=== PATIENT | male | born 1975 | race Caucasian/White ===

== ENCOUNTER 2020-06-28 05:01 | Inpatient (IN) | payer MEDICAID ==
[~2020-06-28] VITALS: Ht 182.9 cm; Wt 73.0 kg
[2020-06-28] MEDS ORDERED: Insulin Reg/NS 100units/100mL 100 ML IV PRN (05:18)
--- NOTE | 2020-06-28 05:30 | NUR ---
INSULIN GTT RESTARTED @ 5U/HR PER MD VERBAL ORDER
[2020-06-28 05:31] LABS: ABG BASE EXCESS -3.6 mmol/L (-2.0-2.0); ABG HCO3 20.3 mmol/L (22.0-26.0); ABG OXYGEN SATURATION 97.1 % (94-97); ABG PCO2 (T) 32.4 mmHg (35.0-48.0); ABG PO2 (T) 96.7 mmHg (75.0-100.0); ALLEN'S TEST POSITIVE; FCOHb 0.7 % (0.0-3.9); FO2Hb 96.4 % (94-97); PATIENT TEMPERATURE 36.8; TOTAL HEMOGLOBIN 11.5 G/dl (14.0-18.0)
[2020-06-28] MEDS ORDERED: potassium CL 20mEq in D5-1/2NS 1,000 ML IV PRN ×2 (05:37→07:07)
[2020-06-28 05:44] LABS: BASOPHILS # (AUTO) 0.1 X10'3 (0-0.2); BASOPHILS % (AUTO) 1.1 % (0-1); EOSINOPHILS % (AUTO) 0.4 % (0-6); HEMATOCRIT 37.5 % (42.0-52.0); HEMOGLOBIN 12.6 g/dl (14.0-17.9); LYMPHOCYTES # (AUTO) 1.6 X10'3 (1.1-4.8); LYMPHOCYTES % (AUTO) 14.2 % (21-51); MEAN CORPUSCULAR HEMOGLOBIN 28.6 PG (27.0-31.0); MEAN CORPUSCULAR HGB CONC 33.5 g/dL (33.0-36.5); MEAN CORPUSCULAR VOLUME 85.4 FL (78-98); MEAN PLATELET VOLUME 7.5 FL (7.4-10.4); MONOCYTES # (AUTO) 0.5 X10'3 (0-0.9); MONOCYTES % (AUTO) 4.9 % (2-12); NEUTROPHILS # (AUTO) 8.8 X10'3 (1.8-7.7); NEUTROPHILS % (AUTO) 79.4 % (42-75); PLATELET COUNT 468 X10'3 (140-440); RED CELL DISTRIBUTION WIDTH 16.2 % (11.5-14.5); WHITE BLOOD COUNT 11.1 X10'3 (4.5-11.0)
[2020-06-28] MEDS ORDERED: INSU100I48 (05:49)
[2020-06-28] MEDS ORDERED: LANTUS SQ (05:49)
[2020-06-28 05:59] LABS: ALANINE AMINOTRANSFERASE 29 U/L (12-78); ALBUMIN 4.4 G/DL (3.4-5.0); ALBUMIN/GLOBULIN RATIO 1.2 (1.1-1.5); ALKALINE PHOSPHATASE 96 IU/L (46-116); ANION GAP 14 (8-16); ASPARTATE AMINO TRANSFERASE 11 U/L (10-37); BILIRUBIN,TOTAL 0.6 MG/DL (0.1-1.0); BLOOD UREA NITROGEN 29 MG/DL (7-18); CALCIUM 9.4 MG/DL (8.5-10.1); CHLORIDE 99 MMOL/L (99-107); CREATININE 1.53 MG/DL (0.60-1.10); GLUCOSE 166 MG/DL (70-104); MAGNESIUM 1.9 MG/DL (1.5-2.4); PHOSPHORUS 2.6 MG/DL (2.3-4.5); POTASSIUM 3.7 MMOL/L (3.5-5.1); SODIUM 135 MMOL/L (135-145); TOTAL CARBON DIOXIDE 22.4 MMOL/L (24-32); TOTAL PROTEIN 8.2 G/DL (6.4-8.2); eGFR 50 ML/MIN
--- NOTE | 2020-06-28 07:06 | NUR ---
Pt glucose 87. Insulin gtt and fluids stopped per instruction of Dr. Sauceda. Pt given carton of milk and 2 servings of yogurt which pt is currently eating and drinking.
[2020-06-28] MEDS ORDERED: Insulin Reg/NS 100units/100mL 100 ML IV SCH (07:07)
[2020-06-28] MEDS ORDERED: mag hydrox/Alum hydrox/simeth 30ml oral suspension PO PRN (07:10)
[2020-06-28] MEDS ORDERED: sodium phosphate inj. 15 MMOL in dextrose 5%-water 250 ML IV PRN (07:10)
[2020-06-28] MEDS ORDERED: Neutra Phos packet PO PRN (07:10)
[2020-06-28] MEDS ORDERED: magnesium hydroxide 30ml (MOM) UD suspension PO PRN (07:10)
[2020-06-28] MEDS ORDERED: sodium phosphate inj. 30 MMOL in dextrose 5%-water 250 ML IV PRN (07:10)
[2020-06-28] MEDS ORDERED: potassium Cl 20 mEq SR tablet PO PRN (07:10)
[2020-06-28] MEDS ORDERED: ondansetron/PF 4mg/2ml inj IV PRN (07:10)
[2020-06-28] MEDS ORDERED: potassium CL 10mEq/100ml bag 100 ML IV PRN ×2 (07:10)
[2020-06-28] MEDS ORDERED: acetaminophen 325mg tablet PO PRN (07:10)
[2020-06-28] MEDS: K and/or MAG REPLACEMENT MC SCH ×2 (08:00→20:00)
--- NOTE | 2020-06-28 08:17 | NUR ---
CALLED DR RAI AND UPDATED MD ON PT GLUCOSE OF 190 AND ORAL INTAKE PT INGESTED. RECEIVED VO TO GIVE 12 UNITS LANTUS SUBCUT X1 NOW AND COVER CARB INTAKE WITH HYPERGLYCEMIA PROTOCOL LEVEL 2.
[2020-06-28] MEDS ORDERED: insulin glargine (Lantus) pen - multi-dose SQ ONE (08:20)
[2020-06-28] MEDS ORDERED: dextrose ORAL solution 15 GM/59 ML bottle PO PRN ×2 (08:35)
[2020-06-28] MEDS ORDERED: dextrose 50%-water 50ml dispensing syringe IV PRN ×2 (08:35)
[2020-06-28] MEDS ORDERED: glucagon, human recombinant 1mg kit SUBCUT PRN (08:35)
[2020-06-28] MEDS: normal saline 1000ml 1,000 ML IV SCH ×3 (08:59→12:14)
[2020-06-28] MEDS: vancomycin/NS 1 GM ADD-VANTAGE 250 ML IV SCH ×2 (08:59→20:01)
[2020-06-28] MEDS: heparin, porcine 5000 units/ml vial SQ SCH ×2 (09:00→19:50)
[2020-06-28] MEDS: insulin Lispro (HumaLOG) vial - multi-dose SQ SCH ×3 (09:17→19:58)
--- NOTE | 2020-06-28 09:39 | NUR ---
Patient in room ED 3. I have received report from Mabel RN and had the opportunity to ask questions. Awaiting pt arrival to PCU
[2020-06-28 10:50] VITALS: BP 161/98
[2020-06-28 11:00] VITALS: BP 151/110
--- NOTE | 2020-06-28 11:01 | NUR ---
Sent a page to Dr Shekhar sommer PAGER ID: [phone] MESSAGE: Meagan BECKFORD [phone], do you want this patient to be on IV fluids? thanks!
--- NOTE | 2020-06-28 12:20 | NUR ---
Attempted to call patients mom, Sadia, at [phone] to give her an update, this is the wrong number, will continue to monitor the patient closely.
[2020-06-28] MEDS ORDERED: hydrALAZINE 20mg/ml inj. IV PRN (13:30)
[2020-06-28] MEDS ORDERED: lisinopril 10 MG tablet PO ONE (13:35)
--- NOTE | 2020-06-28 14:06 | NUR ---
Sent a page to Dr Shekhar sommer PAGER ID: [phone] MESSAGE: Meagan BECKFORD [phone], patient c/o pain in had, can i have an order for PRN pain medication please, thank you
[2020-06-28] MEDS: HYDROcodone/acetaminophen 5mg/325mg tablet PO PRN ×2 (14:19→19:49)
[2020-06-28 14:38] LABS: ALBUMIN 3.3 G/DL (3.4-5.0); ANION GAP 8 (8-16); BLOOD UREA NITROGEN 26 MG/DL (7-18); BUN/CREATININE RATIO 21.1 (5.4-32.0); CALCIUM 8.5 MG/DL (8.5-10.1); CHLORIDE 99 MMOL/L (99-107); CREATININE 1.23 MG/DL (0.60-1.10); GLUCOSE 203 MG/DL (70-104); PHOSPHORUS 2.1 MG/DL (2.3-4.5); POTASSIUM 3.4 MMOL/L (3.5-5.1); SODIUM 133 MMOL/L (135-145); TOTAL CARBON DIOXIDE 26.5 MMOL/L (24-32); eGFR 64 ML/MIN
[2020-06-28 15:00] VITALS: BP 159/94
[2020-06-28] MEDS: potassium Cl 20 mEq SR tablet PO PRN ×2 (15:27→23:29)
[2020-06-28 18:00] VITALS: BP 131/70
--- NOTE | 2020-06-28 18:28 | NUR ---
Problems reprioritized. Patient report given, questions answered & plan of care reviewed with Doroteo BECKFORD.
--- NOTE | 2020-06-28 18:43 | NUR ---
Patient in room PCU 3010. I have received report from SHAKEEL Rhodes and had the opportunity to ask questions and assume patient care.
[2020-06-28] MEDS: lactobacillus rhamnosus 10,000 MMU CELLS/CAPSULE PO SCH (19:49)
[2020-06-28 22:00] VITALS: BP 135/80
[2020-06-29] MEDS: HYDROcodone/acetaminophen 5mg/325mg tablet PO PRN (01:33)
[2020-06-29] MEDS: normal saline 1000ml 1,000 ML IV SCH (01:35)
[2020-06-29] MEDS ORDERED: HYDROcodone/acetaminophen 10/325mg tab PO PRN (01:45)
[2020-06-29] MEDS ORDERED: Melatonin 3mg tablet PO SCH ×2 (01:55→21:00)
[2020-06-29 02:00] VITALS: BP 142/87
[2020-06-29 05:18] LABS: BASOPHILS # (AUTO) 0.1 X10'3 (0-0.2); BASOPHILS % (AUTO) 1.8 % (0-1); EOSINOPHILS # (AUTO) 0.2 X10'3 (0-0.9); EOSINOPHILS % (AUTO) 2.9 % (0-6); HEMATOCRIT 30.9 % (42.0-52.0); HEMOGLOBIN 10.3 g/dl (14.0-17.9); LYMPHOCYTES # (AUTO) 1.8 X10'3 (1.1-4.8); LYMPHOCYTES % (AUTO) 25.9 % (21-51); MEAN CORPUSCULAR HEMOGLOBIN 28.9 PG (27.0-31.0); MEAN CORPUSCULAR HGB CONC 33.4 g/dL (33.0-36.5); MEAN CORPUSCULAR VOLUME 86.3 FL (78-98); MEAN PLATELET VOLUME 7.7 FL (7.4-10.4); MONOCYTES # (AUTO) 0.5 X10'3 (0-0.9); MONOCYTES % (AUTO) 7.9 % (2-12); NEUTROPHILS # (AUTO) 4.3 X10'3 (1.8-7.7); NEUTROPHILS % (AUTO) 61.5 % (42-75); PLATELET COUNT 341 X10'3 (140-440); RED BLOOD COUNT 3.58 X10'6 (4.70-6.10); RED CELL DISTRIBUTION WIDTH 16.1 % (11.5-14.5)
[2020-06-29 05:31] LABS: ALBUMIN 3.1 G/DL (3.4-5.0); ANION GAP 7 (8-16); BLOOD UREA NITROGEN 22 MG/DL (7-18); BUN/CREATININE RATIO 20.8 (5.4-32.0); CALCIUM 8.1 MG/DL (8.5-10.1); CHLORIDE 102 MMOL/L (99-107); CREATININE 1.06 MG/DL (0.60-1.10); GLUCOSE 203 MG/DL (70-104); PHOSPHORUS 2.5 MG/DL (2.3-4.5); POTASSIUM 3.4 MMOL/L (3.5-5.1); SODIUM 134 MMOL/L (135-145); eGFR 76 ML/MIN
--- NOTE | 2020-06-29 06:12 | NUR ---
Patient in room PCU 3010. I have received report from Brian BECKFORD and had the opportunity to ask questions and assume patient care.
--- NOTE | 2020-06-29 06:20 | NUR ---
Problems reprioritized. Patient report given, questions answered & plan of care reviewed with SHAKEEL Ward.
[2020-06-29 07:00] VITALS: BP 135/85
[2020-06-29] MEDS ORDERED: lisinopril 10 MG tablet PO SCH (08:00)
[2020-06-29] MEDS: K and/or MAG REPLACEMENT MC SCH (08:00)
[2020-06-29] MEDS: vancomycin/NS 1 GM ADD-VANTAGE 250 ML IV SCH (08:36)
[2020-06-29] MEDS: lactobacillus rhamnosus 10,000 MMU CELLS/CAPSULE PO SCH (08:39)
[2020-06-29] MEDS: heparin, porcine 5000 units/ml vial SQ SCH (08:40)
[2020-06-29] MEDS: insulin Lispro (HumaLOG) vial - multi-dose SQ SCH ×2 (08:55→13:06)
[2020-06-29] MEDS ORDERED: insulin glargine (Lantus) pen - multi-dose SQ ONE (10:30)
[2020-06-29 11:00] VITALS: BP 133/77
[2020-06-29] MEDS ORDERED: CLIN150C2 PO (11:05)
--- NOTE | 2020-06-29 14:04 | NUR ---
patient upset and verbal stated he waited an hour for food. Patient reminded that dietary delivered on the hour. patient remained verbal throwing things in room and appeared very upset. [place] given to patient, who appeared to calm down, though remained verbal using superlatives. DC papers given following patient seen by Dr Corrigan. Patient awaiting ride to [facility].
--- NOTE | 2020-06-29 14:46 | NUR ---
All DC instructions given to patient. Ride arranged by fresh food manager home see note. patient appeared stable for discharge home. DC home via private cab [id number].
[2020-06-29] MEDS ORDERED: VANCOMYCIN LEVEL IV ONE (19:30)
== END 2020-06-29 14:40 | disposition home or self-care (01) | DRG 420 ==
LOC: ER 05:02 → ED HOLD 07:07 → PCU 3S 10:35
PROVIDERS: ADMIT Family Medicine; ATTEND Family Medicine
DX: E11.10 Type 2 diabetes mellitus with ketoacidosis without coma (principal); L03.011 Cellulitis of right finger; E11.40 Type 2 diabetes mellitus with diabetic neuropathy, unspecified; I10 Essential (primary) hypertension; Z88.0 Allergy status to penicillin; Z88.8 Allergy status to other drugs, medicaments and biological substances; Z91.018 Allergy to other foods
CPT/HCPCS: 36415; 36600; 73130; 80048; 80053; 82803; 82948; 83605; 83735; 84100; 84145; 85018; 85025; 87040; 87081; 99285; G0378; J1644; J1815; J3370; J3480; J7030